=== PATIENT | male | born 1960 | race Caucasian/White ===

== ENCOUNTER → 2017-06-17 | Outpatient (CLI) | payer OTHER | LOC: RAD 12:27 | DX: M25.511 Pain in right shoulder (principal) ==

== ENCOUNTER → 2018-09-17 | Outpatient (CLI) | payer OTHER | LOC: RAD 11:23 | DX: M19.042 Primary osteoarthritis, left hand (principal); M19.041 Primary osteoarthritis, right hand; M25.741 Osteophyte, right hand; M25.742 Osteophyte, left hand ==